=== PATIENT | male | born 1940 | race Caucasian/White ===

== ENCOUNTER 2018-11-26 12:00 | Outpatient (CLI) | payer BC, MEDICARE, OTHER ==
[2018-11-26 14:04] LABS: #Basophils 0.1 thou/uL (0.0-0.2); #Eosinphils 0.2 thou/uL (0.0-0.7); #Lymphocytes 1.7 thou/uL (1.20-3.40); #Monocytes 0.8 thou/uL (0.11-0.59); #Neutrophils 4.2 thou/uL (1.40-6.50); %Basophils 0.8 % (0.0-1.0); %Eosinophils 2.4 % (0.0-10.0); %Lymphocytes 24.4 % (21.0-51.0); %Monocytes 11.5 % (0.0-10.0); Hemoglobin 16.4 g/dL (14.0-18.0); Mean Corpuscular HGB CONC 35.1 g/dL (32.0-36.0); Mean Corpuscular Hemoglobin 32.1 pg (27.0-31.0); Mean Corpuscular Volume 91.4 fL (78.0-98.0); Mean Platelet Volume 8.4 fL (7.4-10.4); Platelet Count 155 thou/uL (130-400); RBC Distribution Width 12.3 % (11.5-14.5); Red Blood Cell (RBC) Count 5.11 mill/uL (4.70-6.10); White Blood Cell (WBC) Count 6.9 thou/uL (4.8-10.8)
[2018-11-26 14:08] LABS: INR-International Normal Ratio 1.1; Prothrombin Time 13.8 SEC (12.0-14.7)
[2018-11-26 14:30] LABS: Anion Gap 14 mmol/L (10-20); BUN (Urea Nitrogen) 16 mg/dL (8.4-25.7); Calc. Creatinine Clearance 0 mL/min (70-130); Calcium 9.7 mg/dL (7.8-10.44); Carbon Dioxide 25 mmol/L (23-31); Chloride 105 mmol/L (98-107); Estimated GFR-MDRD 72; Glucose 128 mg/dL (83-110); Potassium 4.2 mmol/L (3.5-5.1); Sodium 140 mmol/L (136-145)
[2018-11-26 14:50] LABS: Bilirubin Negative (Negative); Blood, Urine Negative (Negative); Clarity Clear (Clear); Glucose, Urine (Dipstick) Normal (Negative); Leukocyte Negative Leu/uL (Negative); Nitrite Negative (Negative); Protein, Urine (Dipstick) 10 mg/dL (Neg-Trace); Urobilinogen 3 mg/dL (Less than 2)
[2018-11-26 15:30] LABS: Bacteria/HPF None Seen HPF (None Seen); RBC/HPF None Seen HPF (0-3); Squamous Epithelial 0-3 HPF (0-3); WBC/HPF None Seen HPF (0-3)
--- NOTE | 2018-11-26 23:53 | EKG ---
Test Reason : Blood Pressure : / mmHG Vent. 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
== END 2018-11-26 12:01 | disposition home or self-care (01) ==
LOC: LABBT 12:00
PROVIDERS: ATTEND Orthopaedic Surgery
DX: Z01.818 Encounter for other preprocedural examination (principal); M17.12 Unilateral primary osteoarthritis, left knee
CPT/HCPCS: 80048; 81001; 85025; 85610; 87081; 93005; 93010

== ENCOUNTER 2018-11-26 13:15 | Inpatient (IN) | payer BC, MEDICARE, OTHER ==
[2018-12-04 09:07] VITALS: BMI 34.0
[2018-12-07] MEDS ORDERED: Vancomycin HCl 1.5 GM in Sodium Chloride 0.9% 250 ML 300 ML IVPB SCH ×2 (07:15→20:00)
[2018-12-07] MEDS ORDERED: Tranexamic Acid 1,000 MG/10 ML VIAL ONE ×2 (07:29→12:26)
[2018-12-07] MEDS ORDERED: Sodium Chloride 0.9% 100 ML ONE (07:29)
[2018-12-07] MEDS ORDERED: Fentanyl 100 MCG/2 ML VIAL ONE ×3 (07:55→13:02)
[2018-12-07] MEDS ORDERED: Ropivacaine 0.2% HCl/PF 20 ML ONE (07:55)
[2018-12-07] MEDS ORDERED: Midazolam HCl 2 mg/2 ml Vial ONE (07:55)
[2018-12-07] MEDS ORDERED: Bupivacaine PF 0.5% 30 ML VIAL ONE (10:36)
[2018-12-07] MEDS ORDERED: Zolpidem Tartrate 5 MG TAB PO PRN ×2 (11:14→11:51)
[2018-12-07] MEDS ORDERED: HYDROcodone/Acetaminophen 10/325 mg Tablet PO PRN ×2 (11:14)
[2018-12-07] MEDS ORDERED: traMADol HCl 50 MG TAB PO PRN (11:14)
[2018-12-07] MEDS ORDERED: Promethazine HCl 25 MG/ML VIAL IM PRN ×2 (11:14→11:51)
[2018-12-07] MEDS ORDERED: Ondansetron PF 4 MG/2 ML Vial IVP PRN ×2 (11:14→11:51)
[2018-12-07] MEDS ORDERED: Ropivacaine HCl/PF 250 ML in Premix Bag 1 BAG NERVE BLCK SCH (11:14)
[2018-12-07] MEDS ORDERED: Fentanyl 100 MCG/2 ML VIAL IV PRN (11:15)
[2018-12-07] MEDS ORDERED: diphenhydrAMINE 25 MG CAP PO PRN (11:51)
[2018-12-07] MEDS ORDERED: Acetaminophen 325 MG TAB PO PRN (11:51)
[2018-12-07] MEDS ORDERED: Tranexamic Acid 1,000 MG in Sodium Chloride 0.9% 100 ML IVPB SCH (12:00)
[2018-12-07] MEDS: Ketorolac Tromethamine 30 MG/ML VIAL IVP SCH ×2 (12:21→18:32)
[2018-12-07] MEDS ORDERED: hydrALAZINE 20 MG/ML VIAL ONE (12:37)
[2018-12-07] MEDS ORDERED: Ropivacaine 0.5% HCl/PF (150 MG/30 ML VIAL) ONE (14:17)
[2018-12-07] MEDS ORDERED: Lidocaine 1% PF 5 ML VIAL ONE (14:53)
[2018-12-07] MEDS ORDERED: Ketorolac Tromethamine 30 MG/ML VIAL ONE (14:53)
[2018-12-07] MEDS ORDERED: Dexamethasone 20 MG/5 ML VIAL ONE (14:53)
[2018-12-07] MEDS ORDERED: Ondansetron PF 4 MG/2 ML Vial ONE (14:53)
[2018-12-07] MEDS ORDERED: PROPOFOL 200 MG/20 ML VIAL ONE (14:53)
--- NOTE | 2018-12-07 15:09 | OP ---
DATE OF PROCEDURE: 12/07/2018 SENIOR CLINICAL DATA ANALYST: Main Butler PA-C. PREOPERATIVE DIAGNOSIS: Left knee osteoarthrosis. POSTOPERATIVE DIAGNOSIS: Left knee osteoarthrosis. PROCEDURE: Left total knee replacement using walkby pinless navigation system. ANESTHESIA: General anesthetic. He also had a preoperative blocks. BLOOD LOSS: Minimal. COMPLICATIONS: None. TOURNIQUET TIME: DISPOSITION: Recovery room in stable condition. IMPLANTS: To the left knee include Dat Triathlon total knee system. The femur was a size 5 cruciate retaining femur. We used a size 5 primary tibial base plate. We used a 5 x 11 CS X3 tibial bearing and asymmetric 32 x 10 X3 patella. INDICATIONS: This is a 77-year-old male, who is presenting for left knee replacement after dealing with left knee arthritic change for years. The patient at this time has failed nonoperative treatment and wished to have the knee replaced. PROCEDURE IN DETAIL: After all appropriate consent forms were explained and signed, the patient was taken back to the operating room and at this time was given general anesthetic. Once the level of anesthesia was appropriate, a well-padded tourniquet was placed on the left leg, and the leg was then prepped and draped in standard surgical fashion. The limb was exsanguinated and tourniquet taken up to 300 mmHg. Midline incision was made with a 10 blade down through the skin and subcutaneous tissue. Bovie electrocautery was used to coagulate any brisk venous bleeding. A new blade was used to make a medial parapatellar arthrotomy. Small subperiosteal release was performed medially and excess fat pad was removed. The knee was flexed up to gain access to the femur. The femur was navigated and distal femoral resection was made. Epicondylar access was used to align our sizing jig and this was pinned in place. We sized our femur to be a 5. 4:1 cutting block was applied and pinned. Anterior and posterior chamfer cuts were then made. We navigated out our proximal tibia and made our proximal tibial resection. Spreaders were used to remove any posterior osteophytes off the back of the femur as well as remaining meniscal tissue. A long alignment manny was then used to achieve correct rotation of our tibial baseplate and a size 5 was chosen. This was pinned in place. We trialed the polyethylene and a 5 x 11 X3 tibial bearing polyethylene gave us full extension and good stability throughout range of motion. Two towel clips and a saw were used to cut our patella. Three lug nuts were drilled and 32 x 10 X3 patella was trialed which sat nicely in the trochlear groove. We then drilled our femur and punched our tibia. All components were removed. The knee was thoroughly irrigated and dried. Cement was mixed into the cement gun on the back table. Components were then placed. The knee was held out in full extension until the cement had dried. All excess bone cement was removed. Multiple #2 Vicryl stitches as well as a Quill were used to close our extensor mechanism. 0 Quill followed by a running Monoderm was then used to close the skin. Surgicel glue was then used on the skin. Once this had dried, soft tissue dressing was applied to the limb, tourniquet was let down , and the toes pinked up nicely. The patient was then awakened and taken to the recovery room in stable condition. All counts were correct at the end of the case. The patient did receive preoperative IV antibiotics. The patient was injected with Marcaine for postoperative pain relief. Job ID: [id number] [facility]
[2018-12-07] MEDS ORDERED: Potassium Chloride 20 MEQ TAB ONE (15:57)
[2018-12-07] MEDS: CEFAZOLIN 2 GM in Premix Bag 1 BAG IVPB SCH (16:03)
[2018-12-07] MEDS: Sodium Chloride 0.9% 1,000 ML IV SCH ×2 (16:05→18:32)
[2018-12-07] MEDS ORDERED: Polyethylene Glycol 3350 17 GM Packet PO PRN (19:24)
[2018-12-07] MEDS ORDERED: hydrALAZINE 20 MG/ML VIAL SLOW IVP PRN (19:25)
[2018-12-07] MEDS: Aspirin 81 mg Enteric Coated Tablet PO SCH (20:11)
--- NOTE | 2018-12-07 23:48 | CON ---
DATE OF CONSULTATION: 12/07/2018 CONSULTING PHYSICIAN: Zackary Sanchez MD REASON FOR CONSULTATION: Perioperative medical management. HISTORY OF PRESENT ILLNESS: This patient is a 77-year-old male with a history of degenerative joint disease of the left knee failing conservative management, who is now postop for total left knee replacement. The patient is currently doing well. His only concerns are hypertension. His blood pressure was a bit up today after his surgery. He indicates that he has had a bit of a stressful day primarily related to trying to be up early to get here for the surgical procedure today. His blood pressure has typically been quite well controlled and he has recently actually been back down to 5 mg of amlodipine p.o. daily primarily because he was having some slight lightheadedness, which was felt to be either due to excessive blood pressure medications or possibly some inner ear issues. He is also concerned secondly about constipation. His prior surgery in 4 years ago was complicated by significant postoperative constipation, which took some fairly aggressive management to resolve. REVIEW OF SYSTEMS: All systems reviewed. All pertinent positives and negatives are noted in the history of present illness. PAST MEDICAL HISTORY: Notable for hypertension, hyperlipidemia, BPH, prior lung nodule which was removed which was reported as "suspicious" requiring external beam radiation. He has a history of melanoma. He has reflux esophagitis in the above-mentioned osteoarthritis. PAST SURGICAL HISTORY: Umbilical hernia repair bilaterally he said, melanoma removed from left ear, total right knee replacement in 2010, unilateral orchiectomy in , and the above-mentioned lung biopsy. FAMILY HISTORY: Reviewed. Father had some heart problems. Mother had COPD. SOCIAL HISTORY: The patient is a former smoker, but he quit in 1978. States he did drink alcohol previously, but now it is just on occasion and never too excess. He is . His very josé is with him and is his surrogate decision maker. ALLERGIES: ASPIRIN AND CODEINE. CURRENT MEDICATIONS: 1. Finasteride 5 mg daily. 2. Amlodipine 10 mg daily, only recently cut back to 5 mg because of some symptoms that had resolved. 3. Atorvastatin 10 mg daily. 4. Alfuzosin 10 mg daily. 5. P.r.n. MiraLAX. PHYSICAL EXAMINATION: VITAL SIGNS: Temperature is 97.6, pulse 72, respirations 18, O2 saturation 96% on room air, BP is 136/68. GENERAL APPEARANCE: Age-appropriate male, in no distress. He is awake and alert, very pleasant, cooperative. HEENT: PERRL. No OP lesions. NECK: Supple and symmetric. No lymphadenopathy, JVD, or bruits. HEART: Regular rate and rhythm without murmurs, gallops, or rubs. LUNGS: Clear to auscultation bilaterally with good chest wall expansion and air exchange. ABDOMEN: Soft, nontender, and nondistended. Positive bowel sounds. No masses. No organomegaly. EXTREMITIES: No cyanosis, clubbing, or edema. He has good peripheral pulses. Warm and dry. IMPRESSION AND PLAN: 1. Postop knee replacement, currently doing very well. Postop plan per Ortho. 2. History of postoperative constipation. He is on good stool softeners now. Add p.r.n. MiraLAX. 3. Hypertension. The patient's most recently documented blood pressure looks pretty good. We will provide p.r.n. hydralazine for coverage tonight should he need it , will be back on his usual dose of amlodipine in the morning. 4. History of gastroesophageal reflux disease with some reflux esophagitis. He is currently on PPI. Thank you for allowing me to participate in the care of this patient. I would be happy to follow along for any medical needs that may arise. Job ID: [id number] [facility]
[2018-12-08] MEDS: CEFAZOLIN 2 GM in Premix Bag 1 BAG IVPB SCH (00:04)
[2018-12-08] MEDS: Ketorolac Tromethamine 30 MG/ML VIAL IVP SCH ×4 (00:04→18:31)
[2018-12-08 04:48] LABS: Hemoglobin 13.3 g/dL (14.0-18.0); Mean Corpuscular HGB CONC 34.9 g/dL (32.0-36.0); Mean Corpuscular Volume 91.8 fL (78.0-98.0); Mean Platelet Volume 8.2 fL (7.4-10.4); Platelet Count 151 thou/uL (130-400); Red Blood Cell (RBC) Count 4.15 mill/uL (4.70-6.10); White Blood Cell (WBC) Count 11.9 thou/uL (4.8-10.8)
[2018-12-08] MEDS: Sodium Chloride 0.9% 1,000 ML IV SCH ×2 (07:46→18:37)
[2018-12-08] MEDS: Finasteride 5 MG TAB PO SCH (07:51)
[2018-12-08] MEDS: Polyethylene Glycol 3350 17 GM Packet PO SCH (07:51)
[2018-12-08] MEDS: Ferrous Gluconate 324 MG TAB PO SCH ×2 (07:51→18:36)
[2018-12-08] MEDS: Senokot S 8.6-50 MG TAB PO SCH ×2 (07:51→21:07)
[2018-12-08] MEDS: Aspirin 81 mg Enteric Coated Tablet PO SCH ×2 (07:51→21:07)
[2018-12-08] MEDS: Amlodipine 10 MG TAB PO SCH (07:51)
[2018-12-08] MEDS ORDERED: FLU VACC TS2019-20(65YR UP)/PF 180 MCG/0.5 ML SYRINGE IM ONE (09:00)
[2018-12-08] MEDS: traMADol HCl 50 MG TAB PO PRN (10:40)
[2018-12-08] MEDS: Alfuzosin 10 MG TABDR...ER PO SCH (10:40)
[2018-12-08] MEDS: Multivitamin W/ Minerals 1 TAB PO SCH (10:43)
[2018-12-08] MEDS ORDERED: Atorvastatin Calcium 10 MG TAB PO SCH (21:00)
[2018-12-08 22:07] LABS: Bilirubin Negative (Negative); Blood, Urine Negative (Negative); Clarity Clear (Clear); Glucose, Urine (Dipstick) Normal (Negative); Leukocyte Negative Leu/uL (Negative); Nitrite Negative (Negative); Protein, Urine (Dipstick) Negative (Neg-Trace); Urobilinogen Normal mg/dL (Less than 2)
[2018-12-09] MEDS: Ketorolac Tromethamine 30 MG/ML VIAL IVP SCH ×2 (00:06→05:44)
[2018-12-09] MEDS: Sodium Chloride 0.9% 1,000 ML IV SCH ×2 (04:43→13:34)
[2018-12-09 05:14] LABS: Hemoglobin 12.3 g/dL (14.0-18.0); Mean Corpuscular HGB CONC 35.5 g/dL (32.0-36.0); Mean Corpuscular Hemoglobin 32.6 pg (27.0-31.0); Mean Corpuscular Volume 91.9 fL (78.0-98.0); Mean Platelet Volume 8.2 fL (7.4-10.4); Platelet Count 108 thou/uL (130-400); RBC Distribution Width 12.2 % (11.5-14.5); Red Blood Cell (RBC) Count 3.77 mill/uL (4.70-6.10); White Blood Cell (WBC) Count 8.7 thou/uL (4.8-10.8)
[2018-12-09] MEDS: traMADol HCl 50 MG TAB PO PRN (08:00)
[2018-12-09] MEDS: Ferrous Gluconate 324 MG TAB PO SCH (08:02)
[2018-12-09] MEDS: Aspirin 81 mg Enteric Coated Tablet PO SCH (08:02)
[2018-12-09] MEDS: Finasteride 5 MG TAB PO SCH (08:02)
[2018-12-09] MEDS: Amlodipine 10 MG TAB PO SCH (08:03)
[2018-12-09] MEDS: Multivitamin W/ Minerals 1 TAB PO SCH (08:03)
[2018-12-09] MEDS: Senokot S 8.6-50 MG TAB PO SCH (08:03)
[2018-12-09] MEDS: Polyethylene Glycol 3350 17 GM Packet PO SCH (08:06)
--- NOTE | 2018-12-09 13:25 | PDOC.HOSPP ---
- Subjective Encounter Date: 12/09/18 Encounter Time: 08:45 Subjective: Patient seen and examined. No new complaints. No overnight events - Objective Vital Signs & Weight: Vital Signs (12 hours) Temp Pulse Resp BP Pulse Ox 12/09/18 08:15 99.0 F 87 16 134/62 95 12/09/18 08:03 73 12/09/18 03:42 98.9 F 73 18 122/69 95 Weight Admit Weight 230 lb Weight 230 lb I&O: 12/08/18 12/09/18 12/10/18 06:59 06:59 06:59 Intake Total 1840 1800 Output Total 775 500 Balance 1065 1300 Result Diagrams: 12/09/18 04:27 Hospitalist ROS - Review of Systems Eyes: denies: pain, vision change, conjunctivae inflammation, eyelid inflammation, redness, other ENT: denies: ear pain, ear discharge, nose pain, nose discharge, nose congestion , mouth pain, mouth swelling, throat pain, throat swelling, other Respiratory: denies: cough, dry, shortness of breath, hemoptysis, SOB with excertion, pleuritic pain, sputum, wheezing, other Cardiovascular: denies: chest pain, palpitations, orthopnea, paroxysmal noc. dyspnea, edema, light headedness, other Gastrointestinal: denies: nausea, vomiting, abdominal pain, diarrhea, constipation, melena, hematochezia, other Genitourinary: denies: dysuria, frequency, incontinence, hematuria, retention, other Musculoskeletal: denies: neck pain, shoulder pain, arm pain, back pain, hand pain, leg pain, foot pain, other Skin: denies: rash, lesions, shabana, bruising, other - Medication Medications: Active Medications Generic Name Dose Route Start Last Admin Trade Name Freq PRN Reason Stop Dose Admin Acetaminophen 650 mg 12/07/18 11:51 12/09/18 08:01 Tylenol PO 650 mg Q4H PRN Administration Headache/Fever/Mild Pain (1-3) Alfuzosin HCl 10 mg 12/08/18 09:00 12/08/18 10:40 Uroxatral PO 10 mg DAILY BARRETT Administration Amlodipine Besylate 10 mg 12/08/18 09:00 12/09/18 08:03 Norvasc PO 10 mg DAILY BARRETT Administration Aspirin 81 mg 12/07/18 21:00 12/09/18 08:02 Ecotrin PO 81 mg BID BARRETT Administration Atorvastatin Calcium 10 mg 12/08/18 21:00 12/08/18 21:07 Lipitor PO 10 mg HS BARRETT Administration Ferrous Gluconate 324 mg 12/08/18 08:00 12/09/18 08:02 Fergon PO 324 mg BID-WM BARRETT Administration Finasteride 5 mg 12/08/18 09:00 12/09/18 08:02 Proscar PO 5 mg DAILY BARRETT Administration Ropivacaine 250 ml/ Device 250 mls @ 10 mls/hr 12/07/18 11:14 12/08/18 14:50 NERVE BLCK 250 mls INF BARRETT Administration Sodium Chloride 1,000 mls @ 100 mls/hr 12/07/18 12:00 12/09/18 04:43 Normal Saline 0.9% IV Not Given .Q10H BARRETT Iron/Minerals/Multivitamins 1 tab 12/08/18 09:00 12/09/18 08:03 Theragran M PO 1 tab DAILY BARRETT Administration Pantoprazole Sodium 40 mg 12/08/18 09:00 12/09/18 08:03 Protonix PO 40 mg DAILY BARRETT Administration Polyethylene Glycol 17 gm 12/08/18 09:00 12/09/18 08:06 Miralax PO Not Given DAILY BARRETT Senna/Docusate Sodium 2 tab 12/08/18 09:00 12/09/18 08:03 Senokot S PO 2 tab BID BARRETT Administration Tramadol HCl 100 mg 12/07/18 11:14 12/09/18 08:00 Ultram PO 100 mg Q6H PRN Administration Moderate Pain 4-6 - Exam General Appearance: NAD, awake alert Eye: PERRL, anicteric sclera ENT: normocephalic atraumatic, no oropharyngeal lesions Neck: supple, symmetric, no JVD, no thyromegaly Heart: RRR, no murmur, no gallops, no rubs Respiratory: CTAB, no wheezes, no rales, no ronchi Gastrointestinal: soft, non-tender, non-distended, normal bowel sounds, no palpable masses, no hepatomegaly, no guarding, no rigidity Extremities: no cyanosis, no clubbing, no edema Extremities - other findings: left knee with dressing Skin: normal turgor, no lesions, no rashes Neurological: cranial nerve grossly intact, no focal deficits, no new deficit Musculoskeletal: normal tone, normal strength, no muscle wasting Psychiatric: normal affect, normal behavior, A&O x 3 Hosp A/P (1) Status post total left knee replacement Code(s): Z96.652 - PRESENCE OF LEFT ARTIFICIAL KNEE JOINT Status: Acute (2) Obesity (BMI 30.0-34.9) Code(s): E66.9 - OBESITY, UNSPECIFIED Status: Chronic (3) Thrombocytopenia Code(s): D69.6 - THROMBOCYTOPENIA, UNSPECIFIED Status: Acute (4) Hypertension Code(s): I10 - ESSENTIAL (PRIMARY) HYPERTENSION Status: Chronic Qualifiers: Hypertension type: essential hypertension Qualified Code(s): I10 - Essential (primary) hypertension (5) GERD (gastroesophageal reflux disease) Code(s): K21.9 - GASTRO-ESOPHAGEAL REFLUX DISEASE WITHOUT ESOPHAGITIS Status: Chronic Qualifiers: Esophagitis presence: without esophagitis Qualified Code(s): K21.9 - Gastro -esophageal reflux disease without esophagitis - Plan old records reviewed/req, plan discussed w/ family, PT/OT medication reviewed as above supportive care and symptomatic treatment medically stable
[2018-12-09 13:49] VITALS: BP 155/70; TEMP 98.2
[2018-12-09] MEDS: Alfuzosin 10 MG TABDR...ER PO SCH (15:00)
--- NOTE | 2018-12-10 12:00 | DIS ---
DATE OF ADMISSION: 12/07/2018 DATE OF DISCHARGE: 12/09/2018 DISCHARGE DISPOSITION: Home. PRIMARY DISCHARGE DIAGNOSIS: Left total knee replacement. SECONDARY DISCHARGE DIAGNOSES: Gastroesophageal reflux disease, hypertension, and obesity with BMI 34. PRIMARY PROCEDURE/OPERATION: Left total knee replacement by Dr. Sanchez. RADIOLOGICAL INVESTIGATION: None. SIGNIFICANT LABORATORY DATA: Hemoglobin 12.3, WBC 8.7, and platelets 101. Urinalysis normal. DISCHARGE MEDICATIONS: 1. Tramadol 50 mg one or two tablets q.6 hourly p.r.n. 2. Alfuzosin 10 mg daily. 3. Norvasc 10 mg daily. 4. Aspirin 81 mg b.i.d. 5. Lipitor 10 mg daily. 6. b.i.d. p.r.n. 7. Proscar 5 mg daily. CONTRAINDICATION: None. CODE STATUS: Full code. INPATIENT OPERATOR PREFINISH: Dr. Sanchez was primary. Sound Team was consulted for medical comanagement. TEST RESULTS PENDING ON DISCHARGE: None. ALLERGIES: ASPIRIN AND OXYCODONE. DISCHARGE PLAN: Posthospital, the patient will follow up with Dr. Sanchez on December 16, 2018, at 2 p.m. The patient will follow up with primary care physician. HOSPITAL COURSE: This is a 77-year-old male, who was electively admitted by Dr. Sanchez for knee replacement on the left side, which was done on December 07, 2018. Postoperatively, Sound Team was consulted for medical comanagement. The patient's medical problems remained stable. The patient did very well with the [facility] protocol treatment. The patient was planned for discharge yesterday. The patient was seen and examined on that day. Please see my progress note from that day. Job ID: [id number]
== END 2018-12-09 15:01 | disposition home or self-care (01) | DRG 470 ==
LOC: SJJU 12-07 06:45 → EDSTATUS 12-07 13:15
PROVIDERS: ADMIT Orthopaedic Surgery; ATTEND Orthopaedic Surgery
PROC: 0SRD0J9 Replacement of Left Knee Joint with Synthetic Substitute, Cemented, Open Approach (ICD-10-PCS; principal; 2018-12-07)
DX: M17.12 Unilateral primary osteoarthritis, left knee (principal); C78.00 Secondary malignant neoplasm of unspecified lung; E78.5 Hyperlipidemia, unspecified; I10 Essential (primary) hypertension; N40.0 Benign prostatic hyperplasia without lower urinary tract symptoms; K59.00 Constipation, unspecified; E66.9 Obesity, unspecified; D69.6 Thrombocytopenia, unspecified; K21.0 Gastro-esophageal reflux disease with esophagitis; Z96.651 Presence of right artificial knee joint; Z90.49 Acquired absence of other specified parts of digestive tract; Z85.828 Personal history of other malignant neoplasm of skin; Z87.891 Personal history of nicotine dependence; Z68.34 Body mass index [BMI] 34.0-34.9, adult
CPT/HCPCS: 36415; 81003; 85027; C1713; C1776; J0360; J0690; J1100; J1885; J2001; J2250; J2405; J2704; J2795; J3010; J3370; J3490; J7050; S0020

== ENCOUNTER 2020-04-24 12:31 | Outpatient (CLI) | payer OTHER | END 2020-04-24 12:32 | disposition home or self-care (01) | LOC: BICULT 12:31 | PROVIDERS: ATTEND Psychiatry & Neurology Neurology | DX: I66.02 Occlusion and stenosis of left middle cerebral artery (principal); I65.21 Occlusion and stenosis of right carotid artery | CPT/HCPCS: 93880 ==

== ENCOUNTER 2021-02-12 12:17 | Emergency (ER) | payer MEDICARE, BC, OTHER ==
[2021-02-12 13:58] LABS: #Eosinphils 0.2 thou/uL (0.0-0.7); #Lymphocytes 1.6 thou/uL (1.20-3.40); #Monocytes 0.8 thou/uL (0.11-0.59); #Neutrophils 5.4 thou/uL (1.40-6.50); %Basophils 0.5 % (0.0-1.0); %Eosinophils 2.6 % (0.0-10.0); %Lymphocytes 19.4 % (21.0-51.0); %Monocytes 10.2 % (0.0-10.0); %Neutrophils 67.2 % (42.0-75.0); Hemoglobin 16.2 g/dL (14.0-18.0); Mean Corpuscular HGB CONC 35.1 g/dL (32.0-36.0); Mean Corpuscular Hemoglobin 32.2 pg (27.0-31.0); Mean Corpuscular Volume 91.8 fL (78.0-98.0); Mean Platelet Volume 7.5 fL (7.4-10.4); Platelet Count 151 thou/uL (130-400); Red Blood Cell (RBC) Count 5.03 mill/uL (4.70-6.10); White Blood Cell (WBC) Count 8.1 thou/uL (4.8-10.8)
[2021-02-12 14:17] LABS: ALT (SGPT) 19 U/L (8-55); AST (SGOT) 15 U/L (5-34); Albumin 4.1 g/dL (3.4-4.8); Alkaline Phosphatase 91 U/L (40-110); Anion Gap 11 mmol/L (10-20); BUN (Urea Nitrogen) 14 mg/dL (8.4-25.7); Bilirubin, Total 0.8 mg/dL (0.2-1.2); Calc. Creatinine Clearance 0 mL/min (70-130); Calcium 9.6 mg/dL (7.8-10.44); Carbon Dioxide 26 mmol/L (23-31); Chloride 105 mmol/L (98-107); Globulin 2.5 g/dL (2.4-3.5); Glucose 123 mg/dL (83-110); Potassium 4.4 mmol/L (3.5-5.1); Protein, Total 6.6 g/dL (5.8-8.1); Sodium 138 mmol/L (136-145)
== END 2021-02-12 15:06 | disposition home or self-care (01) ==
LOC: ERS 12:17
DX: R42 Dizziness and giddiness (principal); H91.91 Unspecified hearing loss, right ear; K21.9 Gastro-esophageal reflux disease without esophagitis; N40.0 Benign prostatic hyperplasia without lower urinary tract symptoms; E78.5 Hyperlipidemia, unspecified; I10 Essential (primary) hypertension; E11.9 Type 2 diabetes mellitus without complications
CPT/HCPCS: 70450; 80053; 84484; 85025; 93005